=== PATIENT | male | born 1975 | race Caucasian/White ===

== ENCOUNTER 2019-11-11 10:19 | Emergency (ER) | payer OTHER, SELFPAY ==
[2019-11-11 10:25] VITALS: BP 150/71; PULSE 69; RESP 12; TEMP 36.4; O2SAT 98
--- NOTE | 2019-11-11 11:34 | ED_ITS ---
HPI - Back Pain/Injury <INNA Gregorio - Last Filed: 11/11/19 14:48> General Chief Complaint: Back Pain/Injury Stated Complaint: Pulled his lower back out Time Seen by Provider: 11/11/19 10:26 Source: patient Mode of arrival: Ambulatory Limitations: no limitations History of Present Illness HPI Narrative: The patient is a 43-year-old male current smoker with history of ?broken shoulder and multiple fractures who presents with a chief complaint of lower back pain. 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 He states that he then took a motorcycle he took believe wants yes today, other [place] to not take anything for the pain period he is not had anything for pain today period denies any previous injury to he is lower back period. He denies any fever, urinary symptoms or histories cancer. He states he feels as low is tracking is leg when he walks. He denies any dealing medications, States but he had an allergy to hydrocodone. Related Data Previous Rx's Medication Instructions Recorded cyclobenzaprine 10 mg PO TID PRN #20 tab 11/11/19 ketorolac 10 mg PO TID PRN #14 tab 11/11/19 lidocaine 1 patch TOP DAILY PRN #15 each 11/11/19 Review of Systems <INNA Gregorio - Last Filed: 11/11/19 14:48> Review of Systems Narrative: GENERAL: Denies chills, fatigue, malaise, fever, sweats. HEENT: Denies sinus pain, ear pain, sore throat, difficulty swallowing, dizziness. RESPIRATORY: Denies dyspnea, cough, wheezing, hemoptysis, sputum. CARDIOVASCULAR: Denies chest pain, palpitations, orthopnea, edema, GASTROINTESTINAL: Denies nausea, vomiting, abdominal pain, diarrhea, constipation, melena. : Denies dysuria, frequency, incontinence, hematuria, urinary retention. MUSCULOSKELETAL: See HPI SKIN: Denies rash, skin lesions, or other NEUROLOGIC: See HPI PSYCHIATRIC: No concerning psychosocial issues. 12 point review of systems is negative except for those stated above Patient History <INNA Gregorio - Last Filed: 11/11/19 14:48> Medical History Fracture, shoulder (Acute) Social History Smoking Status: Current every day smoker Smoking Status: Current every day smoker Substance Use Type: does not use Exam <INNA Gregorio - Last Filed: 11/11/19 14:48> Narrative Exam Narrative: GENERAL: This is a well-nourished, well-developed patient, appears uncomfortable HEAD: Atraumatic. Normocephalic. No temporal or scalp tenderness. EYES: Pupils equal round and reactive. Extraocular motions intact. No scleral icterus. No injection or drainage. ENT: Nose without bleeding, purulent drainage or septal hematoma. Throat without erythema, tonsillar hypertrophy or exudate. Uvula midline. Airway patent. NECK: Trachea midline. No JVD or lymphadenopathy. Supple, nontender, no meningeal signs. CARDIOVASCULAR: Regular rate and rhythm without murmurs, gallops, or rubs. RESPIRATORY: Clear to auscultation. Breath sounds equal bilaterally. No wheezes, rales, or rhonchi. No cough. No increased respiratory effort. No accessory muscles. GASTROINTESTINAL: Abdomen soft, non-tender, nondistended. No hepato- splenomegaly, or palpable masses. No guarding. EXTREMITIES: No clubbing, cyanosis, or edema. No joint tenderness, effusion, or edema noted. BACK: No pain to C or T-spine. Pain to lumbar and paraspinal lumbar muscle palpation NEURO: AOx3. Strength is equal upper and lower extremities bilaterally. Sensation intact bilateral lower extremities. Toes intact to needle prick bilaterally x2 SKIN: No rash or erythema on visible skin Initial Vital Signs Initial Vital Signs: Vital Signs Temperature 97.6 F 11/11/19 10:25 Pulse Rate 69 11/11/19 10:25 Respiratory Rate 12 11/11/19 10:25 Blood Pressure 150/71 H 11/11/19 10:25 Pulse Oximetry 98 11/11/19 10:25 <Hector Garza DO - Last Filed: 11/11/19 19:22> Initial Vital Signs Initial Vital Signs: Vital Signs Temperature 97.6 F 11/11/19 10:25 Pulse Rate 69 11/11/19 10:25 Respiratory Rate 12 11/11/19 10:25 Blood Pressure 150/71 H 11/11/19 10:25 Pulse Oximetry 98 11/11/19 10:25 Course <INNA Gregorio - Last Filed: 11/11/19 14:48> Orders Ordered: ED Orders 11/11/19 11:33 XR lumbar spine 2-3V Stat Discontinued Medications Cyclobenzaprine HCl (Flexeril) 10 mg PO NOW ONE Stop: 11/11/19 11:34 Last Admin: 11/11/19 12:04 Dose: 10 mg Documented by: BECKY Ketorolac Tromethamine (Toradol) 60 mg IM NOW ONE Stop: 11/11/19 11:34 Last Admin: 11/11/19 12:04 Dose: 60 mg Documented by: BECKY Lidocaine (Lidoderm) 1 each TOP NOW ONE Stop: 11/11/19 11:34 Last Admin: 11/11/19 12:04 Dose: 1 each Documented by: BECKY Vital Signs Vital signs: Vital Signs - 8 hr 11/11/19 12:33 Pulse Rate 71 Respiratory Rate 17 Blood Pressure [Left Arm] 137/82 Pulse Oximetry 100 <Hector Garza DO - Last Filed: 11/11/19 19:22> Orders Ordered: ED Orders 11/11/19 11:33 XR lumbar spine 2-3V Stat Discontinued Medications Cyclobenzaprine HCl (Flexeril) 10 mg PO NOW ONE Stop: 11/11/19 11:34 Last Admin: 11/11/19 12:04 Dose: 10 mg Documented by: BECKY Ketorolac Tromethamine (Toradol) 60 mg IM NOW ONE Stop: 11/11/19 11:34 Last Admin: 11/11/19 12:04 Dose: 60 mg Documented by: BECKY Lidocaine (Lidoderm) 1 each TOP NOW ONE Stop: 11/11/19 11:34 Last Admin: 11/11/19 12:04 Dose: 1 each Documented by: BECKY Vital Signs Vital signs: Vital Signs - 8 hr 11/11/19 12:33 Pulse Rate 71 Respiratory Rate 17 Blood Pressure [Left Arm] 137/82 Pulse Oximetry 100 MDM - Back Pain/Injury <INNA Gregorio - Last Filed: 11/11/19 14:48> Differential Diagnosis Differential diagnosis: Likely lumbar radiculopathy, sciatica, strain of lumbar region and thoracic back pain Imaging Data Lumbar x-ray: Radiologist's Impression: [address] [address] XRay Report Signed Patient: Cas Douglas LMR#: [id number] : 1975Acct:[id number] Age/Sex: 43 / MDate of Service: 11/11/19 Loc: ED Accession Number: [id number] Procedure: XR lumbar spine 2-3V Ordering Provider: Komal Pacheco-SHEY PROCEDURE: XR LUMBAR SPINE 2-3V INDICATIONS: lower back pain TECHNIQUE: 2 views of the lumbar spine were acquired. COMPARISON: None. FINDINGS: Bones: 5 [id number] vertebrae are present. There is normal bony alignment. Mild degenerative wedging of the T12 vertebral body with anterior endplate spurring. No vertebral body compression fractures. No suspicious bony lesions. Soft tissues: Overlying bowel gas pattern is normal. No suspicious soft tissue calcifications. IMPRESSION: 1. Intact lumbar spine. 2. Mild degeneration of the lower thoracic spine. Dictated by: Yulisa Quinones M.D. on 11/11/2019 at 12:22 Approved by: Yulisa Quinones M.D. 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 Then he went for a motorcycle ride, which worsened his pain. He has normal since, denies any incontinence bowel, incontinence of bladder saddle anesthesia. Sensation is intact bilaterally and he is able to weightbear throughout his stay in the emergency department. He feels much better with per above-stated therapies, does not want to take anything else for pain or any stronger pain medication at this point time. I discussed at length coming back to the ER for any acute concerns such as incontinence of bowel, incontinence of bladder saddle anesthesia. I discussed at length follow up with primary care provider coming back to the emergency department for any acute concerns. Patient has no questions or concerns upon discharge and states understanding of return precautions as well as follow-up care. Discharge Plan Departure Patient Disposition: Home Clinical Impression: Acute back pain Qualifiers: Back pain location: low back pain Back pain laterality: bilateral Sciatica presence: unspecified whether sciatica present Qualified Code(s): M54.5 - Low back pain Strain of lumbar region Qualifiers: Encounter type: initial encounter Qualified Code(s): S39.012A - Strain of muscle, fascia and tendon of lower back, initial encounter Discharge Date/Time: 11/11/19 13:17 Instructions: DI for Low Back Pain, DI for Back Spasm, DI for Back Strain or Sprain Activity Restrictions/Additional Instructions: Thank you for trusting us with your care today I sent 3 prescriptions to [facility] in [place] I have given you a prescription of Toradol. This is an NSAID. Do not combine it with other NSAIDs such as Aleve or ibuprofen. I suggest taking it with some food, as it can irritate your stomach. I also gave her prescription of Flexeril or cyclobenzaprine. This is a muscle relaxer. This can be sedating. Do not take it with anything else sedating such as alcohol. Please also follow-up with primary care providers I discussed. Please come back to the emergency department for any acute concerns. This includes incontinence of bowel, incontinence of bladder or numbness in your groin. Please rest over the next few days. Prescriptions: New cyclobenzaprine 10 mg tablet 10 mg PO TID PRN (Reason: muscle spasm) Qty: 20 RF: 0 ketorolac 10 mg tablet 10 mg PO TID PRN (Reason: pain) Qty: 14 RF: 0 lidocaine 5 % adhesive patch,medicated 1 patch TOP DAILY PRN (Reason: pain) Qty: 15 RF: 0 Referrals: Davina Linton MD [Primary Care Provider] - <Hector Garza DO - Last Filed: 11/11/19 19:22> [facility] I was immediately available in the department for consultation. This documen tation has been reviewed and I agree with assessment and plan. Supervised by Hector Garza DO
[2019-11-11] MEDS: CYCLOBENZAPRINE 10 MG TABLET PO (12:04)
[2019-11-11] MEDS: LIDOCAINE PATCH 1 EACH ADH..PATCH TOP (12:04)
[2019-11-11] MEDS: KETOROLAC 60 MG/2 ML VIAL IM (12:04)
--- NOTE | 2019-11-11 12:09 | PC.NURSE ---
pt denies bladder bowel dysfunction
--- NOTE | 2019-11-11 12:13 | PC.NURSE ---
ambulated from WC outside BR to BR and back to WC without distress
[2019-11-11 12:33] VITALS: BP 137/82; PULSE 71; RESP 17; O2SAT 100
== END 2019-11-11 13:17 | disposition home or self-care (01) ==
PROVIDERS: Emergency Provider Nurse Practitioner Family; Family Provider Emergency Medicine; PCP Internal Medicine
DX: S39.012A Strain of muscle, fascia and tendon of lower back, initial encounter (principal); X50.1XXA Overexertion from prolonged static or awkward postures, initial encounter
CPT/HCPCS: 72100; 96372; 99283; J1885